=== PATIENT | male | born 1965 | race Caucasian/White ===

== ENCOUNTER 2024-05-09 11:19 | Emergency (ER) | payer OTHER, SELFPAY ==
[2024-05-09 11:38] VITALS: BP 167/99
[2024-05-09 12:19] LABS: % Basophils 0.4 % (0-2); % Eosinophils 0.8 % (0-6); % Immature Granulocytes 0.3 % (0-0.5); % Lymphocytes 11.8 % (20.5-51.1); % Monocytes 8.5 % (1.7-9.3); % Neutrophils 78.2 % (42.2-75.2); Absolute Eosinophils 0.1 10^3/uL (0-0.7); Absolute Lymphocytes 1.2 10^3/uL (1.2-3.4); Absolute Monocytes 0.9 10^3/uL (0.1-0.6); Absolute Neutrophils 7.9 10^3/uL (1.4-6.5); Hematocrit 45.5 % (39.0-52.0); Hemoglobin 15.6 g/dL (13.0-18.0); Mean Corp Hgb Conc. 34.3 g/dL (33.0-37.0); Mean Corpuscular Hgb 31.8 pg (27.0-31.0); Mean Corpuscular Volume 92.9 fL (80.0-94.0); Mean Platelet Volume 9.8 fL (7.4-10.4); Nucleated Red Blood Cells % 0 % (-); Platelet Count 282 10^3/uL (130-400); Red Cell Dist. Width 12.6 % (11.5-14.5); White Blood Cell Count 10.1 10^3/uL (4.8-10.8)
[2024-05-09 12:29] LABS: APTT 28.2 Sec (23.4-35.0)
[2024-05-09 12:35] LABS: ALT (SGPT) 21 U/L (0-50); AST (SGOT) 23 U/L (17-59); Albumin 4.9 g/dl (3.5-5.0); Alkaline Phosphatase 44 U/L (38-126); Blood Urea Nitrogen 20 mg/dl (9-20); Carbon Dioxide 28 mmol/L (22-30); Chloride 100 mmol/L (98-107); Glucose 118 mg/dl (70-99); Potassium 4.4 mmol/L (3.5-5.1); Sodium 141 mmol/L (135-145); Total Bilirubin 1.2 mg/dl (0.2-1.3); Total Protein 7.5 g/dl (6.3-8.2); eGFR > 60.00
[2024-05-09 12:46] LABS: NT-proBNP 69.2 pg/ml; Troponin I < 0.012 ng/ml
[2024-05-09 14:00] VITALS: BP 124/74
--- NOTE | 2024-05-09 15:17 | ED.GENMED ---
History of Present Illness
General
Chief Complaint: Chest Pain
Time Seen by Provider: 05/09/24 14:30
History of Present Illness
History of Present Illness:
Patient is a 58-year-old male with history of hypertension, alcohol use who presents to the emergency department with mid back pain. Reports history of similar back pain in the past. Denies any injury but states that has been ongoing for the past
week. Pain wraps around to his anterior chest. Is worse with movement or bending over. Patient reports occasional bilateral arm pain. Denies any weakness in the arms.
Past History
Past History
ED Past Medical History: HTN; Negative Asthma, Hypercholesterolemia or NIDDM
ED Past Surgical History: None
Social History
Tobacco: Former smoker
Alcohol: Daily (Beer 6-8)
Personal: Single
Living: with family
Phy Exam
Physical Exam
Physical Exam:
GENERAL APPEARANCE: NAD, well developed/ well nourished
EYES lids/conjunctiva normal
EARS/NOSE/THROAT Mucous membranes moist, uvula midline without oral pharyngeal erythema, exudate or swelling
HEAD/NECK normocephalic atraumatic, neck is supple.
RESPIRATORY respiratory effort normal, speaks in full sentences, no accessory muscle use. Lungs clear to auscultation without rhonchi, wheezes, rales
CARDIAC Regular rate and rhythm, no edema.
ABDOMINAL Soft, ND/NT. No pulsatile masses on exam, rebound tenderness, Hardy sign or pain over Mcburney's point.
MUSCLES/EXTREMITIES No abnormal range of motion, no swelling.
SKIN Warm, pink and dry. No rashes
NEUROLOGICAL Speech is clear and appropriate. Normal level of consciousness. 5/5 strength in all extremities.
PSYCH Normal mood and affect. Judgement/competence is appropriate
Scores
Heart Score for Chest Pain Patients
STEMI patient?: Not applicable
Course
Orders/Labs/Results
Orders:
Orders
05/09/24 11:20
EKG [Electrocardiogram (*1)] Urgent
Reason for Study: Chest Pain
EKG- Treatment ONCE
05/09/24 11:40
CR Chest - 2 Views Urgent
Comment:
Reason For Exam: SOB
05/09/24 12:03
Complete Blood Count/With Diff Urgent
Comprehensive Metabolic Panel Urgent
NT-proBNP Urgent
PTT Urgent
Troponin I Urgent
Abnormal Lab Results
05/09/24
12:03
MCH 31.8 H pg
(27.0-31.0)
Absolute Neuts (auto) 7.9 H 10^3/uL
(1.4-6.5)
Absolute Monos (auto) 0.9 H 10^3/uL
(0.1-0.6)
Neutrophils % 78.2 H %
(42.2-75.2)
Lymphocytes % 11.8 L %
(20.5-51.1)
Glucose 118 H mg/dl
(70-99)
05/09/24 12:03
05/09/24 12:03
Vital Signs
Initial and Last Documented VS:
Initial Vital Signs
Temp Pulse Resp BP Pulse Ox
98.2 F 67 18 167/99 99
05/09/24 11:38 05/09/24 11:38 05/09/24 11:38 05/09/24 11:38 05/09/24 11:38
Last Documented Vital Signs
Temp Pulse Resp BP Pulse Ox
98.2 F 68 14 124/74 99
05/09/24 11:38 05/09/24 14:45 05/09/24 14:45 05/09/24 14:00 05/09/24 11:38
*Critical Care Note
Total Time (30-74mins, 75-104mins- exclusive of procedures): Not Applicable
ED Attending Note
ED Attending Note
ED Attending Note:
Patient is very well-appearing. He has had pain over the past few weeks. He is hemodynamically stable. No tachycardia or shortness of breath currently to indicate pulmonary embolism. Good pulse exam, not clinically suggestive of aortic pathology
EKG is normal sinus rhythm without ischemic changes. Troponin is negative making acute cardiac disease less likely. Heart score is low risk. Suspect musculoskeletal back pain given his history of similar symptoms. Will start on inflammatories
and recommend close follow-up with his primary doctor this week
-
Portions of this chart may have been created with voice recognition software.� Occasional wrong word or��sound alike� substitutions may have occurred due to the inherent limitations of voice recognition software.
Discharge Plan
Departure
Patient Disposition: Home (Routine Discharge)
Date of Disposition: 05/09/24
Time of Disposition: 15:22
Patient with high blood pressure during this ER visit?: Yes
Discharge Problem:
Back pain
Instructions: Back Pain
Prescriptions:
New
naproxen 500 mg tablet
500 mg PO BID Qty: 14 0RF
No Action
carvedilol 6.25 MG tablet
6.25 mg PO BID Qty: 60 1RF
lisinopril 5 MG tablet
5 mg PO DAILY Qty: 30 1RF
Referrals:
Carolina Keys PA-C [Family Provider] -
Interventions
Interventions:
*Risk Screen - Suicide Last Done: 05/09/24 14:02
*General Assessment Last Done: 05/09/24 11:38
*Neglect/Abuse Screening Last Done: 05/09/24 14:02
*ED COVID-19 Vaccine History Last Done: 05/09/24 14:02
*Nursing Disposition Last Done: 05/09/24 15:31
ED- Cardiac Assessment Last Done: 05/09/24 14:03
Discharge Date and Time
Discharge Date/Time: 05/09/24 15:36
Print Language: [email or web address]
== END 2024-05-09 15:36 | disposition home or self-care (01) ==
LOC: EMR 11:19
PROVIDERS: Student in an Organized Health Care Education/Training Program; EMERGENCY PHYSICIAN Emergency Medicine; FAMILY PHYSICIAN Physician Assistant
DX: M54.9 Dorsalgia, unspecified (principal); I10 Essential (primary) hypertension; Z87.891 Personal history of nicotine dependence
CPT/HCPCS: 99285; 71046; 80053; 83880; 84484; 85025; 85730; 93005

== ENCOUNTER → 2024-07-23 12:38 | Outpatient (REF) | payer OTHER, SELFPAY | LOC: HWRCS 12:38 | PROVIDERS: ATTENDING PHYSICIAN Internal Medicine; FAMILY PHYSICIAN Physician Assistant | DX: Z87.891 Personal history of nicotine dependence (principal) | CPT/HCPCS: 71271; 93306 ==